=== PATIENT | male | born 2000 | race Hispanic/Latino ===

== ENCOUNTER 2022-06-25 19:25 | Inpatient (IN) | payer OTHER ==
[~2022-06-25] VITALS: Ht 177.8 cm; Wt 109.4 kg
[2022-06-25 20:09] LABS: HEMATOCRIT 48.1 % (42.0-52.0); HEMOGLOBIN 15.8 g/dl (13.5-17.5); MEAN CORPUSCULAR HEMOGLOBIN 27.6 pg (27.0-33.0); MEAN CORPUSCULAR HGB CONC 32.8 g/dl (32.0-36.5); MEAN CORPUSCULAR VOLUME 84.1 fl (80.0-96.0); PLATELET COUNT, AUTOMATED 241 10^3/uL (150-450); RED BLOOD COUNT 5.72 10^6/uL (4.30-6.10); WHITE BLOOD COUNT 15.8 10^3/uL (4.0-10.0)
[2022-06-25 20:35] LABS: AMPHETAMINES LEVEL URINE NEGATIVE (NEGATIVE); BARBITURATES URINE NEGATIVE (NEGATIVE); BENZODIAZEPINES URINE NEGATIVE (NEGATIVE); CANNABINOIDS URINE NEGATIVE (NEGATIVE); COCAINE METABOLITE URINE NEGATIVE (NEGATIVE); METHADONE URINE NEGATIVE (NEGATIVE); OPIATES URINE NEGATIVE (NEGATIVE); PHENCYCLIDINE URINE NEGATIVE (NEGATIVE)
[2022-06-25 20:39] LABS: ACETAMINOPHEN LEVEL < 2.0 UG/ML (10.0-20.0); SALICYLATE LEVEL < 3.0 MG/DL (<30)
[2022-06-25 20:50] LABS: ETHYL ALCOHOL (ETHANOL) < 0.003 % (0.000-0.010)
[2022-06-25 20:52] LABS: ALBUMIN 4.4 G/DL (3.2-5.2); ALKALINE PHOSPHATASE 108 U/L (46-116); ALT/SGPT 26 U/L (7.0-40); AST/SGOT < 8 U/L (<34); BILIRUBIN,DIRECT 0.3 MG/DL (<0.4); BILIRUBIN,TOTAL 0.9 MG/DL (0.3-1.2); BLOOD UREA NITROGEN 12 MG/DL (9-23); CALCIUM LEVEL 9.2 MG/DL (8.5-10.1); CARBON DIOXIDE LEVEL 26 MMOL/L (20-31); CHLORIDE LEVEL 103 MMOL/L (98-107); CREATININE FOR GFR 0.89 MG/DL (0.70-1.30); GLOMERULAR FILTRATION RATE > 60.0 (>60); GLUCOSE, FASTING 77 MG/DL (60-100); POTASSIUM SERUM 3.8 MMOL/L (3.5-5.1); SODIUM LEVEL 140 MMOL/L (136-145); TOTAL PROTEIN 7.4 G/DL (5.7-8.2)
[2022-06-25] MEDS ORDERED: HOME MED LIST COMPLETE! XX SCH (21:25)
[2022-06-26] MEDS ORDERED: ACETAMINOPHEN TAB 650MG DOSE (2X325MG) PO PRN (00:20)
[2022-06-26] MEDS ORDERED: MOM 30ML SUSPENSION UDC PO PRN (00:20)
[2022-06-26] MEDS ORDERED: MAALOX 30 ML SUSP *UDC PO PRN (00:20)
[2022-06-26] MEDS ORDERED: LORazepam 1 MG TAB PO PRN (00:20)
[2022-06-26 01:31] VITALS: BP 130/78
[2022-06-26 06:47] VITALS: BP 137/64
[2022-06-26 16:45] VITALS: BP 124/60
[2022-06-27 06:35] VITALS: BP 134/65
[2022-06-27] MEDS: FLUoxetine 10 MG CAP PO SCH (09:38)
[2022-06-27] MEDS: NICOTINE 14 MG/24 HR TRANSDERMAL TD SCH (17:52)
[2022-06-27 18:00] VITALS: BP 120/60
[2022-06-27] MEDS: traZODone 50 MG TAB PO PRN (22:25)
[2022-06-28 06:40] VITALS: BP 118/58
[2022-06-28] MEDS: NICOTINE 14 MG/24 HR TRANSDERMAL TD SCH (08:02)
[2022-06-28] MEDS: FLUoxetine 10 MG CAP PO SCH (08:03)
[2022-06-28] MEDS ORDERED: NICOTINE 14 MG/24 HR TRANSDERMAL TD SCH (09:00)
[2022-06-28] MEDS ORDERED: hydrOXYzine 50 MG TAB PO PRN (09:05)
[2022-06-28] MEDS ORDERED: FLUoxetine 10 MG CAP PO ONE (09:15)
[2022-06-28 16:19] VITALS: BP 143/84
[2022-06-28] MEDS: traZODone 50 MG TAB PO PRN (20:36)
[2022-06-29 06:17] VITALS: BP 109/55
[2022-06-29] MEDS: FLUoxetine 20MG CAP PO SCH (08:18)
[2022-06-29] MEDS: NICOTINE 14 MG/24 HR TRANSDERMAL TD SCH (08:19)
[2022-06-29 16:08] VITALS: BP 129/62
[2022-06-29] MEDS: traZODone 50 MG TAB PO PRN (20:31)
[2022-06-30 06:47] VITALS: BP 136/66
[2022-06-30] MEDS: NICOTINE 14 MG/24 HR TRANSDERMAL TD SCH (08:33)
[2022-06-30] MEDS: FLUoxetine 20MG CAP PO SCH (08:34)
[2022-06-30] MEDS ORDERED: HYDR50TA70 PO (09:35)
[2022-06-30] MEDS ORDERED: FLUO20CA22 PO (09:35)
== END 2022-06-30 12:59 | disposition home or self-care (01) | DRG 885 ==
LOC: M ED 19:25 → EDBD 19:25 → M ED INP 23:12 → M PSY 06-26 01:00
PROVIDERS: ADMIT Psychiatry & Neurology Psychiatry; ATTEND Psychiatry & Neurology Psychiatry
DX: F32.89 Other specified depressive episodes (principal); R45.851 Suicidal ideations; Z63.0 Problems in relationship with spouse or partner; F17.210 Nicotine dependence, cigarettes, uncomplicated